=== PATIENT | female | born 2005 | race Caucasian/White ===

== ENCOUNTER 2024-02-20 13:38 | Emergency (ER) | payer SELFPAY ==
[~2024-02-20] VITALS: Ht 152.4 cm; Wt 66.0 kg
[2024-02-20 13:43] VITALS: O2SAT 99
[2024-02-20] MEDS ORDERED: ONDANSETRON HCL 4MG/2ML INJ ONE ×2 (13:53→18:26)
[2024-02-20] MEDS ORDERED: MUPI1OIN4 TP (18:16)
[2024-02-20] MEDS ORDERED: CEPH500C2 MT (18:16)
[2024-02-20 18:42] VITALS: BP 126/68; PULSE 74; RESP 19; TEMP 98.1
== END 2024-02-20 18:43 | disposition home or self-care (01) ==
LOC: ER 14:18
DX: R21 Rash and other nonspecific skin eruption (principal)
CPT/HCPCS: 99283; J2405